=== PATIENT | female | born 1945 | race Caucasian/White ===

== ENCOUNTER → 2023-12-21 | Day surgery (SDC) | payer OTHER, BC ==
[2023-12-13 15:08] VITALS: BMI 15.9
[~2023-12-21] MED LIST: ACETAMINOPHEN 325 MG TABLET (FP) PO PRN; BACITRACIN/POLYMYXIN OPH OINT 3.5 GM TUBE ONE; BETAXOLOL HCL 0.25% OPHTHALMIC 10 ML DROPSBTL ONE; BSS (NA/CA/MG/K) BALANCED SALT SOLUTION OPHTH SOLN 15 ML BOTTLE ONE; CYCLOPENTOLATE HCL 1% OPHTH SOLN 2 ML BOTTLE ONE; EPI-SHUGARCAINE (EPINEPHRINE 0.025% & LIDOCAINE-PF 0.75%) 4ML ONE; EPINEPHrine/PF 1 MG/1 ML (1:1,000) AMPULE ONE; KETOROLAC TROMETHAMINE 0.5% EYE DROP 1 DROP DROPS ONE; MIDAZOLAM HCL 2 MG/2 ML SINGLE DOSE VIAL ONE; NEO/POLYMYX B SULF/DEXAMETH OPHTHALMIC 5ML BOTTLE ONE; OFLOXACIN 0.3% OPHTHALMIC SOLUTION 5 ML BOTTLE ONE; ONDANSETRON 4 MG/2 ML VIAL ONE; PHENYLEPHRINE 2.5% OPTHALMIC DROP 2ML BOTTLE ONE; POVIDONE-IODINE 5% OPHTHALMIC PREP 30 ML SOLUTION ONE; TETRACAINE 0.5% OPHTH SOLN 2 ML BOTTLE ONE; TROPICAMIDE 1% OPHTH SOLN 15 ML BOTTLE ONE
[2023-12-21] MEDS: PHENYLEPHRINE 2.5% OPHTH SOLN 15 ML BOTTLE OD SCH (07:35)
[2023-12-21] MEDS: CYCLOPENTOLATE HCL 1% OPHTH SOLN 2 ML BOTTLE OD SCH (07:35)
[2023-12-21] MEDS: KETOROLAC TROMETHAMINE 0.5% EYE DROP 1 DROP DROPS OD SCH (07:35)
[2023-12-21] MEDS: OFLOXACIN 0.3% OPHTHALMIC SOLUTION 5 ML BOTTLE OD SCH (07:35)
[2023-12-21] MEDS: TROPICAMIDE 1% OPHTH SOLN 15 ML BOTTLE OD SCH (07:35)
[2023-12-21 09:50] VITALS: PULSE 54; TEMP 97.9
[2023-12-21 10:06] VITALS: BP 150/72; RESP 19
== END | disposition home or self-care (01) ==
LOC: FASU 07:12
PROVIDERS: ATTEND Ophthalmology
PROC: 08RJ3JZ Replacement of Right Lens with Synthetic Substitute, Percutaneous Approach (ICD-10-PCS; principal; 2023-12-21 08:35)
DX: H25.89 Other age-related cataract (principal)
CPT/HCPCS: 66984; V2632

== ENCOUNTER 2024-01-04 06:20 | Day surgery (SDC) | payer OTHER, BC ==
[2023-12-13 15:17] VITALS: BMI 15.9
[2024-01-04] MEDS ORDERED: KETOROLAC TROMETHAMINE 0.5% EYE DROP 1 DROP DROPS ONE (06:37)
[2024-01-04] MEDS ORDERED: PHENYLEPHRINE 2.5% OPTHALMIC DROP 2ML BOTTLE ONE (06:37)
[2024-01-04] MEDS ORDERED: OFLOXACIN 0.3% OPHTHALMIC SOLUTION 5 ML BOTTLE ONE (06:37)
[2024-01-04] MEDS ORDERED: TROPICAMIDE 1% OPHTH SOLN 15 ML BOTTLE ONE (06:37)
[2024-01-04] MEDS ORDERED: CYCLOPENTOLATE HCL 1% OPHTH SOLN 2 ML BOTTLE ONE (06:37)
[2024-01-04 07:00] VITALS: RESP 16
[2024-01-04] MEDS: CYCLOPENTOLATE HCL 1% OPHTH SOLN 2 ML BOTTLE OS SCH (07:00)
[2024-01-04] MEDS: OFLOXACIN 0.3% OPHTHALMIC SOLUTION 5 ML BOTTLE OS SCH (07:00)
[2024-01-04] MEDS: TROPICAMIDE 1% OPHTH SOLN 15 ML BOTTLE OS SCH (07:00)
[2024-01-04] MEDS: KETOROLAC TROMETHAMINE 0.5% EYE DROP 1 DROP DROPS OS SCH (07:00)
[2024-01-04] MEDS ORDERED: PHENYLEPHRINE 2.5% OPHTH SOLN 15 ML BOTTLE OS SCH (07:00)
[2024-01-04] MEDS ORDERED: BACITRACIN/POLYMYXIN OPH OINT 3.5 GM TUBE ONE (07:13)
[2024-01-04] MEDS ORDERED: BETAXOLOL HCL 0.25% OPHTHALMIC 10 ML DROPSBTL ONE (07:13)
[2024-01-04] MEDS ORDERED: EPINEPHrine/PF 1 MG/1 ML (1:1,000) AMPULE ONE (07:13)
[2024-01-04] MEDS ORDERED: NEO/POLYMYX B SULF/DEXAMETH OPHTHALMIC 5ML BOTTLE ONE (07:14)
[2024-01-04] MEDS ORDERED: TETRACAINE 0.5% OPHTH SOLN 2 ML BOTTLE ONE (07:14)
[2024-01-04] MEDS ORDERED: POVIDONE-IODINE 5% OPHTHALMIC PREP 30 ML SOLUTION ONE (07:14)
[2024-01-04] MEDS ORDERED: EPI-SHUGARCAINE (EPINEPHRINE 0.025% & LIDOCAINE-PF 0.75%) 4ML ONE (07:14)
[2024-01-04] MEDS ORDERED: MIDAZOLAM HCL 2 MG/2 ML SINGLE DOSE VIAL ONE (08:01)
[2024-01-04] MEDS ORDERED: ACETAMINOPHEN 325 MG TABLET (FP) PO PRN (09:07)
[2024-01-04 09:55] VITALS: TEMP 97.1
[2024-01-04 10:07] VITALS: BP 150/75; PULSE 52
== END 2024-01-04 09:50 | disposition home or self-care (01) ==
LOC: FASU 06:20
PROVIDERS: ATTEND Ophthalmology
PROC: 08RK3JZ Replacement of Left Lens with Synthetic Substitute, Percutaneous Approach (ICD-10-PCS; principal; 2024-01-04 08:34)
DX: H25.89 Other age-related cataract (principal)
CPT/HCPCS: 66984; V2632